=== PATIENT | male | born 1990 | race Caucasian/White ===

== ENCOUNTER 2019-05-24 19:45 | Emergency (ER) | payer SELFPAY ==
[2019-05-24 19:49] VITALS: BP 123/75; PULSE 92; RESP 16; TEMP 36.1; O2SAT 95; BMI 35.5
--- NOTE | 2019-05-24 19:54 | US_ITS ---
WS: [id number] ULTRASOUND RENAL TECHNIQUE: Ultrasound examination of both kidneys. CLINICAL INFORMATION: FLANK PAIN COMPARISON: None. FINDINGS: RIGHT: Right kidney is normal in size and appearance. Echogenicity: Normal Hydronephrosis: None. Perinephric fluid: None. Right kidney measures: 11.1 cm x 6.0 cm x 4.0 cm. LEFT: Left kidney is normal in size and appearance. Echogenicity: Normal. Hydronephrosis: None. Perinephric fluid: None. Left kidney measures: 9.5 cm x 6.2 cm x 4.9 cm. Normal visualized aorta. Normal bladder. US/US renal BI with bladder IMPRESSION: Normal renal ultrasound.
--- NOTE | 2019-05-24 19:55 | W.ED.BACK ---
HPI - Back Pain/Injury General: Chief Complaint: Back Pain/Injury Stated Complaint: back pain Time Seen by Provider: 05/24/19 19:52 History of Present Illness: HPI Narrative: Kirit is a 28-year-old male who comes in complaining of left flank pain. He states the pain is similar to kidney stones he has had in the past. He has had dark urine but does not believe he is had any blood in his urine. He denies any fever or vomiting. Patient states his pain is much worse but got abruptly better just prior to arrival. Associated symptoms: Deny abdominal pain, chills, difficulty walking, dysuria, fatigue, fever(s), hematuria, nausea, syncope, urinary urgency or vomiting Review of Systems General: Reports: other (negative unless marked) Const: Denies: fever, chills, body aches, fatigue, malaise or diaphoresis Eyes: Denies: change in vision or blurry vision ENMT: Denies: throat pain, painful swallowing, hoarseness, ear pain, ear discharge, Change in hearing or nasal discharge Card: Denies: chest pain, palpitations, irregular heart rhythm, syncope, pre-syncope, shortness of breath on exertion or shortness of breath when lying down Resp: Denies: shortness of breath, productive cough, non-productive cough, wheezing, coughing up blood or chest congestion GI: Denies: abdominal pain, nausea, vomiting, vomiting blood, coffee grounds in vomit, diarrhea, constipation, cramping, blood in stool or black tarry stool : Reports: flank pain; Denies: difficulty urinating, painful urination, urinary frequency, urinary urgency, decreased urine ouput, urinary incontinence or blood in urine Musc: Denies: neck pain, back pain, extremity pain, extremity swelling, joint pain, joint swelling, joint warmth or joint stiffness Skin/Breast: Denies: rash, skin tenderness or yellow skin Neuro: Denies: headache, numbness in extremities, weakness in extremities, changes in sensation, lack of coordination, difficulty walking, dizziness, vertigo or confusion Endo: Denies: excessive thirst, tired all the time, cold intolerance, excessive sweating, flushing or hot flashes Je/Lymph: Denies: easy bruising, easy bleeding, petechiae or enlarged lymph nodes All/Imm: Denies: hives, throat swelling, tongue swelling, facial swelling or acute wheezing [facility] ED PFSH: Medical History (Updated 05/24/19 @ 22:40 by Karen Cho) Kidney stones Social History Smoking and tobacco status: current every day smoker Physical Exam Const: COMMON NORMALS: no apparent distress, oriented x3, no limitations, healthy appearing and well nourished EXAM LIMITATIONS: no altered mental status GENERAL APPEARANCE: cooperative, well kempt and well developed ORIENTATION/CONSCIOUSNESS: Yes awake HENMT: COMMON NORMALS: normocephalic, head/scalp atraumatic, hearing grossly normal bilaterally, external ears normal, EAC's normal, external nose normal and moist oral mucous membranes HEAD & SCALP: normal to inspection, normocephalic and atraumatic FACE & SINUS: normal facial exam and face symmetric NOSE: external nose normal and nares normal EXTERNAL EAR: Yes external ears normal EXTERNAL AUDITORY CANAL: EAC's normal MOUTH: oral and palatal mucosa normal and tongue normal Eye: COMMON NORMALS: PERRL, EOMs intact bilaterally, conjunctivae normal and no scleral icterus GENERAL EYE: normal appearance of both eyes and normal light reflex CONJUNCTIVA: Yes conjunctivae normal SCLERA: sclerae normal CORNEA: Yes corneas normal PUPIL: Yes PERRL DIRECT OPHTHALMOSCOPY: Yes normal light reflex Neck/C-Spine: COMMON NORMALS: full ROM, no lymphadenopathy, supple, no meningeal signs and no JVD GENERAL: Yes normal visual inspection and Yes trachea midline CERVICAL SPINE: Yes cervical ROM normal Chest: COMMONS NORMALS: inspection of chest normal and palpation of chest normal Resp: COMMON NORMALS: normal respiratory effort, no retractions, no use of accessory muscles and clear to auscultation bilaterally EFFORT & INSPECTION: Yes able to speak in complete sentences AUSCULTATION: clear to auscultation bilaterally Cardio: COMMON NORMALS: no JVD, regular rate, regular rhythm, S1 normal heart sound, S2 normal heart sound, no gallops, no clicks, no murmurs and no rub JUGULAR VENOUS DISTENTION: no JVD RATE: regular rate RHYTHM: regular rhythm HEART SOUNDS: S1 normal and S2 normal GI: COMMON NORMALS: soft to palpation, non-tender, no hepatosplenomegaly and no masses INSPECTION: Yes normal to inspection PALPATION: Yes soft and Yes no hepatosplenomegaly : COMMON NORMALS: Yes no CVA tenderness BLADDER/KIDNEY EXAM: Yes no CVA tenderness Back/Pelvis: COMMON NORMALS: no CVA tenderness, thoracic and lumbar spine normal to inspection, no thoracic nor lumbar tenderness and thoraco-lumbar ROM normal Extremity: COMMON NORMALS: normal to inspection, full ROM, normal capillary refill, no joint enlargement, no clubbing, cyanosis or edema and no calf tenderness Neuro: COMMON NORMALS: oriented x3, CN's II-XII intact bilaterally, moves all extremities, no focal motor deficits and no sensory deficits noted MENINGEAL SIGNS: Yes no meningeal signs Psych: COMMON NORMALS: mental status grossly normal, thought process normal, cooperative, affect normal, speech normal and activity/motor behavior normal APPEARANCE: Yes well kempt SPEECH: Yes normal speech THOUGHT PROCESS: normal thought process Skin: COMMON NORMALS: no rashes or lesions noted, skin turgor normal, no jaundice, no petechiae and no mottling GENERAL SKIN EXAM: no rashes or lesions noted and turgor normal Course Vital Signs: Vital signs: Vital Signs Temperature 96.9 F L 05/24/19 19:49 Pulse Rate 82 05/24/19 22:54 Respiratory Rate 17 05/24/19 22:54 Blood Pressure 141/68 05/24/19 22:54 Pulse Oximetry 96 05/24/19 22:54 MDM - Back Pain/Injury MDM Narrative: Medical decision making narrative: Patient agreed to go ahead with CT scan as he had questionable infection. CT reveals likely passed stone in the bladder. I did review the case with Dr. Arevalo agrees to see the patient in follow-up. Patient the patient on prophylactic antibiotics at this time he does not have fever, he has no further flank pain and no sign of sepsis. Patient will go home and follow-up with Dr. Barton Lab Data: Attestation: I reviewed the patient's lab results. Labs: Lab Results 05/24/19 05/24/19 05/24/19 Range/Units 20:10 20:10 20:35 WBC 13.3 H (4.0-10.0) 10^3/ uL RBC 5.50 H (4.1-5.3) 10^6/u L Hgb 17.4 H (11.7-16.6) g/dL Hct 49.9 (42.0-52.0) % MCV 90.7 (80-94) fL MCH 31.6 (28.0-34.0) pg MCHC 34.9 (30.0-36.0) g/dL RDW 12.2 (12.1-15.1) % Plt Count 226 (130-400) 10^3/c mm MPV 11.2 H (7.4-10.4) fL Neut % (Auto) 75.6 % Lymph % (Auto) 17.5 % [place] % (Auto) 5.8 % Eos % (Auto) 0.4 % Baso % (Auto) 0.4 % Neut # (Auto) 10.1 H (1.8-7.7) 10^3/u L Lymph # (Auto) 2.3 (0.8-4.8) 10^3/u L [place] # (Auto) 0.8 (0.2-0.9) 10^3/u L Eos # (Auto) 0.1 (0.0-0.8) 10^3/u L Baso # (Auto) 0.1 (0.0-0.1) 10^3/u L Nucleated RBC % (a uto) 0 % Nucleated RBCs # 0.0 /100WBC Sodium 140 (136-145) mmol/L Potassium 3.6 (3.5-5.1) mmol/L Chloride 102 (98-107) mmol/L Carbon Dioxide 23 (22-29) mmol/L Anion Gap 18.6 (5-19) BUN 12 (6-20) mg/dL Creatinine 1.0 (0.7-1.2) mg/dL GFR Calculation 89.6 L (90-130) mL/min Glucose 125 H (65-115) mg/dL Calculated Osmolal ity 288 (285-295) mOsm/k g Calcium 9.9 (8.5-10.5) mg/dL Total Bilirubin 0.6 (0.15-1.2) mg/dL AST 29 (0-40) U/L ALT 51 H (0-41) U/L Alkaline Phosphata se 83 (40-130) IU/L Total Protein 7.5 (6.6-8.7) g/dL Albumin 4.7 (3.5-5.2) g/dL Globulin 2.8 (1.3-4.6) g/dL Urine Color Yellow (Yellow) Urine Appearance Clear (CLEAR) Urine pH 5 (5-7) Ur Specific Gravit y 1.020 (1.005-1.030) Urine Protein 1+ H (Negative) Urine Glucose (UA) Norm (Normal) Urine Ketones 2+ H (Negative) Urine Blood 3+ H (Negative) Urine Nitrate Negative (Negative) Urine Bilirubin Neg (NEGATIVE) Urine Urobilinogen 1 H (Negative) mg/dL Ur Leukocyte Pat ase Trace H (Negative) Urine RBC 15-25 H (0-2) /hpf Urine WBC 0-4 H (0-5) /hpf Ur Squamous Epith Cells None (0-5) Urine Bacteria 1+ H (NONE) Urine Mucus 2+ Imaging Data^: US: Radiologist's impression: Ultrasound bilateral renal with bladder, technologist interpretation -no acute findings. Please see formal report. CT Abd/Pel: Radiologist's impression: [place] [address] CT Scan Report Signed Patient: Kirit Arredondo Unit #: [id number] : 1990 Age/Sex: 28 / M ADM Date: 05/24/19 Loc: ER Room/Bed: Attending Dr: Ordering Provider/Ordering MD: Karen Cho DO Date of Service: 05/24/19 Procedure(s): CT kidney stone 33846 Accession Number(s): [id number] Report Number: [id number] PROCEDURE INFORMATION: Exam: CT Abdomen And Pelvis Without Contrast Exam date and time: 05/24/2019 9:49 PM Age: 28 years old Clinical indication: Abdominal pain; Patient HX: Left flank/groin pain starting today; Additional info: Flank/abdominal pain TECHNIQUE: Imaging protocol: Computed tomography of the abdomen and pelvis without contrast. Total DLP: 1433.44 mGy-cm Radiation optimization: All CT scans at this facility use at least one of these dose optimization techniques: automated exposure control; mA and/or kV adjustment per patient size (includes targeted exams where dose is matched to clinical indication); or iterative reconstruction. COMPARISON: US renal BI with bladder 05/24/2019 9:18 PM FINDINGS: Lungs: The lung bases are clear. Liver: The liver is severely fatty but not significantly enlarged. There is incidental focal fatty sparing near the gallbladder. Gallbladder and bile ducts: See Liver finding. Pancreas: Normal. No ductal dilation. Spleen: Normal. No splenomegaly. Adrenals: Normal. No mass. Kidneys and ureters: There is no obstructive uropathy. However within the left portion of the urinary bladder there is a 1 x 2 mm calculus which could be in the very distal ampullary portion of the ureter or free within the urinary bladder. Several 1-2 mm nonobstructing right intrarenal calculi. Stomach and bowel: Unremarkable. No obstruction. No mucosal thickening. Appendix: The appendix is normal. Intraperitoneal space: Unremarkable. No free air. No significant fluid collection. Vasculature: Unremarkable. No abdominal aortic aneurysm. Lymph nodes: Unremarkable. No enlarged lymph nodes. Bladder: See Kidneys and ureters finding. Reproductive: Unremarkable as visualized. Bones/joints: Unremarkable. No acute fracture. Soft tissues: 2 cm incidental umbilical hernia consisting of noninflamed fatty tissue. CT/CT kidney stone [id number] IMPRESSION: 1. Small calculus in the urinary bladder, probably in the ampullary portion of the ureter but could be free in the bladder. No hydronephrosis. 2. Additional nonobstructing right intrarenal stones. 3. Hepatic steatosis Radiation Dose CTDIVOL = (mGy): DLP = 1433.44 (mGy-cm) Dictated By: Mauri Torres MD Signed By: Mauri Torres MD Signed Date/Time: 05/24/192225 DD/ 23 Discharge Plan Discharge Patient Disposition: Home, Self-Care Clinical Impression: Kidney stones, Acute UTI Condition: Stable Prescriptions: New Cipro 500 mg tablet 500 mg PO BID Qty: 20 RF: 0 Discharge Orders: Discharge Order (Routine); Ordered 05/24/19 Ordered By: Karen Cho Referrals: Yousif Arevalo MD [Physician] - 1-3 days Discharge Diet: Advance as tolerated Discharge Activity: Increase activity as tolerated Patient Instructions: Urinary Tract Infection in Men (ED), Renal Colic (ED) Activity Restrictions/Additional Instructions: Please return to the ER immediately for any of the signs or symptoms listed on your discharge instruction sheets, worsening/changing of your symptoms, you are not getting better as quickly as expected, or for ANY other cause or concerns. Return to the ER for fever, return of your flank pain, vomiting, or for any other cause for concern. 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
[2019-05-24] MEDS: HYDROcodone-acetaminophen 5-325 mg Tablet 1 TAB PO (20:08)
[2019-05-24 20:25] LABS: Basophils # 0.1 10^3/uL (0.0-0.1); Basophils % 0.4 %; Eosinophils # 0.1 10^3/uL (0.0-0.8); Eosinophils % 0.4 %; Hematocrit 49.9 % (42.0-52.0); Hemoglobin 17.4 g/dL (11.7-16.6); Lymphocytes # 2.3 10^3/uL (0.8-4.8); Lymphocytes % 17.5 %; Mean Corpuscular HGB Conc 34.9 g/dL (30.0-36.0); Mean Corpuscular Hemoglobin 31.6 pg (28.0-34.0); Mean Corpuscular Volume 90.7 fL (80-94); Mean Platelet Volume 11.2 fL (7.4-10.4); Monocytes # 0.8 10^3/uL (0.2-0.9); Monocytes % 5.8 %; Neutrophils # 10.1 10^3/uL (1.8-7.7); Neutrophils % 75.6 %; Nucleated Red Blood Cells % 0 %; Platelet Count 226 10^3/cmm (130-400); Red Cell Distribution Width 12.2 % (12.1-15.1); White Blood Count 13.3 10^3/uL (4.0-10.0)
[2019-05-24 20:48] LABS: Alanine Aminotransferase 51 U/L (0-41); Albumin Level 4.7 g/dL (3.5-5.2); Alkaline Phosphatase 83 IU/L (40-130); Anion Gap 18.6 (5-19); Aspartate Amino Transferase 29 U/L (0-40); Blood Urea Nitrogen 12 mg/dL (6-20); Calcium 9.9 mg/dL (8.5-10.5); Carbon Dioxide 23 mmol/L (22-29); Chloride 102 mmol/L (98-107); Globulin 2.8 g/dL (1.3-4.6); Glomerular Filtration Rate 89.6 mL/min (90-130); Glucose 125 mg/dL (65-115); Osmolality Calculated 288 mOsm/kg (285-295); Potassium 3.6 mmol/L (3.5-5.1); Sodium 140 mmol/L (136-145); Total Bilirubin 0.6 mg/dL (0.15-1.2); Total Protein 7.5 g/dL (6.6-8.7)
[2019-05-24 21:35] LABS: Bilirubin Urine Neg (NEGATIVE); Blood Urine 3+ (Negative); Glucose Urine UA Norm (Normal); Ketones Urine 2+ (Negative); Nitrate Urine Negative (Negative); Protein Urine 1+ (Negative); Urine Appearance Clear (CLEAR); Urine Color Yellow (Yellow); pH Urine 5 (5-7)
[2019-05-24 21:36] LABS: Leukocyte Esterase Urine Trace (Negative); Urobilinogen Urine 1 mg/dL (Negative)
--- NOTE | 2019-05-24 21:45 | CTR_ITS ---
PROCEDURE INFORMATION: Exam: CT Abdomen And Pelvis Without Contrast Exam date and time: 05/24/2019 9:49 PM Age: 28 years old Clinical indication: Abdominal pain; Patient HX: Left flank/groin pain starting today; Additional info: Flank/abdominal pain TECHNIQUE: Imaging protocol: Computed tomography of the abdomen and pelvis without contrast. Total DLP: 1433.44 mGy-cm Radiation optimization: All CT scans at this facility use at least one of these dose optimization techniques: automated exposure control; mA and/or kV adjustment per patient size (includes targeted exams where dose is matched to clinical indication); or iterative reconstruction. COMPARISON: US renal BI with bladder 05/24/2019 9:18 PM FINDINGS: Lungs: The lung bases are clear. Liver: The liver is severely fatty but not significantly enlarged. There is incidental focal fatty sparing near the gallbladder. Gallbladder and bile ducts: See Liver finding. Pancreas: Normal. No ductal dilation. Spleen: Normal. No splenomegaly. Adrenals: Normal. No mass. Kidneys and ureters: There is no obstructive uropathy. However within the left portion of the urinary bladder there is a 1 x 2 mm calculus which could be in the very distal ampullary portion of the ureter or free within the urinary bladder. Several 1-2 mm nonobstructing right intrarenal calculi. Stomach and bowel: Unremarkable. No obstruction. No mucosal thickening. Appendix: The appendix is normal. Intraperitoneal space: Unremarkable. No free air. No significant fluid collection. Vasculature: Unremarkable. No abdominal aortic aneurysm. Lymph nodes: Unremarkable. No enlarged lymph nodes. Bladder: See Kidneys and ureters finding. Reproductive: Unremarkable as visualized. Bones/joints: Unremarkable. No acute fracture. Soft tissues: 2 cm incidental umbilical hernia consisting of noninflamed fatty tissue. CT/CT kidney stone [id number] IMPRESSION: 1. Small calculus in the urinary bladder, probably in the ampullary portion of the ureter but could be free in the bladder. No hydronephrosis. 2. Additional nonobstructing right intrarenal stones. 3. Hepatic steatosis Radiation Dose CTDIVOL = (mGy): DLP = 1433.44 (mGy-cm)
[2019-05-24 21:53] LABS: Add Urine Culture? Yes; Bacteria Urine 1+; Mucus Urine 2+; RBC Urine 15-25 /hpf (0-2); WBC Urine 0-4 /hpf (0-5)
[2019-05-24] MEDS: lidocaine 1% INJ 20 mL 2.1 ML IM (22:47)
[2019-05-24] MEDS: ciprofloxacin 500 mg Tablet PO (22:47)
[2019-05-24] MEDS: cefTRIAXone 1,000 mg SDV 1000 MG IM (22:47)
[2019-05-24 22:54] VITALS: BP 141/68; PULSE 82; RESP 17; O2SAT 96
== END 2019-05-24 23:04 | disposition home or self-care (01) ==
PROVIDERS: Emergency Provider Emergency Medicine
DX: N20.0 Calculus of kidney (principal); N39.0 Urinary tract infection, site not specified; F17.200 Nicotine dependence, unspecified, uncomplicated
CPT/HCPCS: 12345; 36415; 74176; 76770; 76857; 80053; 81001; 85025; 87086; 96372; 99281; 99283; J0696; J2001

== ENCOUNTER 2021-09-09 03:52 | Emergency (ER) | payer SELFPAY ==
[2021-09-09] VITALS (8 sets, daily range): BP systolic 122–144; BP diastolic 69–102; PULSE 59–96; RESP 18–22; TEMP 37.1; O2SAT 94–99; BMI 27.8
--- NOTE | 2021-09-09 04:00 | XRR_ITS ---
PROCEDURE INFORMATION: Exam: XR Abdomen Exam date and time: 09/09/2021 4:40 AM Age: 30 years old Clinical indication: Abdominal pain; Patient HX: RT sided back and groin pain x 2 days, HX of kidney stones; Additional info: Kidney stone TECHNIQUE: Imaging protocol: Radiologic exam of the abdomen. Views: Frontal supine view of the abdomen. 1 View. Other contrast: none; COMPARISON: CT kidney stone [id number] 05/24/2019 10:11 PM FINDINGS: Gastrointestinal tract: There is a non-obstructive bowel gas pattern. There is no abnormal dilatation of bowel loops. There is no pneumatosis or mass effect. There is no organomegaly. Intraperitoneal space: No definite free air on the supine view exam. Bones/joints: There are no acute osseous abnormalities noted. Soft tissues: No radiopaque foreign body or abnormal opacity. XR/XR KUB portable [id number] IMPRESSION: Unremarkable one-view radiographic evaluation of the abdomen.
--- NOTE | 2021-09-09 04:01 | ED_ITS ---
HPI - Abdominal Pain General: Chief Complaint: Back Pain/Injury Stated Complaint: ABD Pain Time Seen by Provider: 09/09/21 03:53 Source: patient Mode of arrival: ambulatory Limitations: no limitations History of Present Illness: 30-year-old male states he has been having right- sided flank pain since 3 AM. Patient states that some intermittent pain last 2 days but sudden onset of worsening pain at 3 AM. States pain is sharp in nature radiates to his groin has had nausea as well. States pain is currently an 8 out of 10 denies any worsening improving factors. He states he has had multiple kidney stones in the past and this feels the same. Associated Symptoms: Reports nausea; Denies chills and fever(s) Review of Systems Const: Denies: fever(s), chills, body aches or change in appetite Eyes: Denies: blurry vision or eye discomfort ENMT: Denies: throat pain or dental pain Card: Denies: chest pain Resp: Denies: dyspnea GI: Reports: nausea : Reports: flank pain Musc: Denies: neck pain or back pain Skin/Breast: Denies: rash Neuro: Denies: headache(s) Psych: Denies: depression Je/Lymph: Denies: easy bruising All/Imm: Denies: urticaria PFSH ED PFSH: Medical History Kidney stones Social History Smoking and tobacco status: current every day smoker Physical Exam Const: COMMON NORMALS: no acute distress, patient oriented x3 and healthy ap pearing HENMT: COMMON NORMALS: normocephalic and atraumatic HEAD & SCALP: normocephalic and atraumatic Eye: COMMON NORMALS: Equal, round and reactive pupils present and EOMs intact bilaterally PUPIL: Yes Equal, round and reactive pupils present Neck/C-Spine: COMMON NORMALS: full ROM and supple Chest: COMMONS NORMALS: normal inspection of the chest and normal palpation of entire chest wall Resp: COMMON NORMALS: normal respiratory effort, No retractions, No use of accessory muscles and clear to auscultation bilaterally AUSCULTATION: clear to auscultation bilaterally Cardio: COMMON NORMALS: regular rate, regular rhythm and No murmurs present (Cardio) RATE: regular rate RHYTHM: regular rhythm GI: COMMON NORMALS: Normal to inspection, nondistended, normoactive bowel sounds present, Soft to palpation, non-tender and no masses PALPATION: Yes Soft to palpation Extremity: COMMON NORMALS: normal to inspection and full ROM Neuro: COMMON NORMALS: patient oriented x3, moves all extremities and no focal motor deficits Psych: COMMON NORMALS: mental status grossly normal, Normal thought process pr esent and cooperative THOUGHT PROCESS: Normal thought process present Skin: COMMON NORMALS: no rashes or lesions noted and no wounds GENERAL SKIN EXAM: no rashes or lesions noted Course Vital Signs: Vital signs: Vital Signs Temperature 98.8 F 09/09/21 04:01 Pulse Rate 96 09/09/21 05:35 Respiratory Rate 18 09/09/21 05:35 Blood Pressure 125/81 09/09/21 05:35 Pulse Oximetry 95 09/09/21 05:35 MDM - Abdominal Pain Medical Decision Making Patient presents with a right-sided kidney stone likely causing his pain. His pain is improved here we will prescribe him hydrocodone and Zofran for home he is stable for discharge he is to follow-up with urology and return if worsening he understands agrees to plan. Lab Data : 09/09/21 04:53 09/09/21 04:53 Labs/Radiology: Radiology Impressions KUB X-Ray 09/09/21 04:00 IMPRESSION: Unremarkable one-view radiographic evaluation of the abdomen. Abdomen/Pelvis CT 09/09/21 05:01 IMPRESSION: 1. Unchanged right kidney mid zone and lower pole 1 x 1 mm calculi. [id number] right hydronephrosis with a right proximal ureteral 1 x 1 x 1 mm calculus (series 4, image 55 and series 6, image 34)-at the L4 level. 2. Bladder not well distended with relative mild bladder wall prominence, as noted above. If there is clinical concern for cystitis, recommend correlation with urinalysis findings. 3. Unchanged severe fatty infiltration of the liver with some small regions of focal fatty sparing. No definite mass seen. Laboratory Results WBC 13.8 10^3/uL (4.0-10.0) H 09/09/21 04:53 RBC 5.17 10^6/uL (4.1-5.3) 09/09/21 04:53 Hgb 17.0 g/dL (11.7-16.6) H 09/09/21 04:53 Hct 47.5 % (42.0-52.0) 09/09/21 04:53 MCV 91.9 fl (80-94) 09/09/21 04:53 MCH 32.9 pg (28.0-34.0) 09/09/21 04:53 MCHC 35.8 g/dL (30.0-36.0) 09/09/21 04:53 RDW 12.4 % (12.1-15.1) 09/09/21 04:53 Plt Count 194 10^3/cmm (130-400) 09/09/21 04:53 MPV 11.1 fL (7.4-10.4) H 09/09/21 04:53 Neut % (Auto) 75.1 % 09/09/21 04:53 Lymph % (Auto) 16.8 % 09/09/21 04:53 [facility] % (Auto) 6.2 % 09/09/21 04:53 Eos % (Auto) 0.7 % 09/09/21 04:53 Baso % (Auto) 0.7 % 09/09/21 04:53 Neut # (Auto) 10.34 10^3/uL (1.8-7.7) H 09/09/21 04:53 Lymph # (Auto) 2.3 10^3/uL (0.8-4.8) 09/09/21 04:53 [facility] # (Auto) 0.9 10^3/uL (0.2-0.9) 09/09/21 04:53 Eos # (Auto) 0.1 10^3/uL (0.0-0.8) 09/09/21 04:53 Baso # (Auto) 0.1 10^3/uL (0.0-0.1) 09/09/21 04:53 Nucleated RBC % (auto) 0 % 09/09/21 04:53 Nucleated RBCs # 0.0 /100WBC 09/09/21 04:53 Sodium 139 mmol/L (136-145) 09/09/21 04:53 Potassium 3.9 mmol/L (3.5-5.1) 09/09/21 04:53 Chloride 105 mmol/L (98-107) 09/09/21 04:53 Carbon Dioxide 24 mmol/L (22-29) 09/09/21 04:53 Anion Gap 13.9 (5-19) 09/09/21 04:53 BUN 10 mg/dL (6-20) 09/09/21 04:53 Creatinine 0.9 mg/dL (0.7-1.2) 09/09/21 04:53 GFR Calculation 99.8 mL/min (90-130) 09/09/21 04:53 Glucose 133 mg/dL (65-115) H 09/09/21 04:53 Calculated Osmolality 289 mOsm/kg (285-295) 09/09/21 04:53 Calcium 9.0 mg/dL (8.5-10.5) 09/09/21 04:53 Total Bilirubin 0.3 mg/dL (0.15-1.2) 09/09/21 04:53 AST 38 U/L (0-40) 09/09/21 04:53 ALT 82 U/L (0-41) H 09/09/21 04:53 Alkaline Phosphatase 63 IU/L (40-130) 09/09/21 04:53 Total Protein 6.2 g/dL (6.6-8.7) L 09/09/21 04:53 Albumin 4.1 g/dL (3.5-5.2) 09/09/21 04:53 Globulin 2.1 g/dL (1.3-4.6) 09/09/21 04:53 Lipase 46 U/L (13-60) 09/09/21 04:53 Urine Color Yellow (Yellow) 09/09/21 04:58 Urine Appearance Hazy (CLEAR) A 09/09/21 04:58 Urine pH 7 (5-7) 09/09/21 04:58 Ur Specific [place] 1.015 (1.005-1.030) 09/09/21 04:58 Urine Protein Trace (Negative) 09/09/21 04:58 Urine Glucose (UA) Norm (Normal) 09/09/21 04:58 Urine Ketones Negative (Negative) 09/09/21 04:58 Urine Blood 3+ (Negative) H 09/09/21 04:58 Urine Nitrate Negative (Negative) 09/09/21 04:58 Urine Bilirubin Neg (Negative) 09/09/21 04:58 Urine Urobilinogen Neg mg/dL (Negative) 09/09/21 04:58 Ur Leukocyte Esterase Negative (Negative) 09/09/21 04:58 Urine RBC 50-80 /hpf (0-2) H 09/09/21 04:58 Urine WBC 0-4 /hpf (0-5) H 09/09/21 04:58 Ur Squamous Epith Cells 0-4 /hpf (0-5) H 09/09/21 04:58 Amorphous Sediment 1+ /hpf 09/09/21 04:58 Urine Bacteria Trace /hpf (NONE) 09/09/21 04:58 Discharge Plan Discharge Patient Disposition: Home Clinical Impression: Kidney stones Condition: Stable Prescriptions: New hydrocodone-acetaminophen 5-325 mg tablet 1 tab PO Q6H PRN (Reason: pain) Qty: 14 0RF ondansetron 4 mg tablet,disintegrating 4 mg PO Q6H PRN (Reason: nausea and vomiting) Qty: 14 0RF No Action Cipro 500 mg tablet 500 mg PO BID Qty: 20 0RF Discharge Orders: Discharge ED (Routine); Ordered 09/09/21 Ordered By: Amalia Carrion Referrals: Yousif Arevalo MD [Physician] - 1-3 days Discharge Diet: Advance as tolerated Discharge Activity: Resume usual activity Patient Instructions: Kidney Stones (ED), Opioid Safety Coding Level of Care Code 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
[2021-09-09] MEDS: ondansetron 2 mg/ML SDV 2 mL 4 MG IVP ×2 (04:27→05:14)
[2021-09-09] MEDS: HYDROmorphone 1 mg/mL INJ 1 mL IVP (04:28)
[2021-09-09] MEDS: sodium chloride 0.9% 1,000 ML 999 ML IV (04:30)
[2021-09-09 05:00] LABS: Basophils # 0.1 10^3/uL (0.0-0.1); Basophils % 0.7 %; Eosinophils # 0.1 10^3/uL (0.0-0.8); Eosinophils % 0.7 %; Hematocrit 47.5 % (42.0-52.0); Lymphocytes # 2.3 10^3/uL (0.8-4.8); Lymphocytes % 16.8 %; Mean Corpuscular HGB Conc 35.8 g/dL (30.0-36.0); Mean Corpuscular Hemoglobin 32.9 pg (28.0-34.0); Mean Corpuscular Volume 91.9 fl (80-94); Mean Platelet Volume 11.1 fL (7.4-10.4); Monocytes # 0.9 10^3/uL (0.2-0.9); Monocytes % 6.2 %; Neutrophils # 10.34 10^3/uL (1.8-7.7); Neutrophils % 75.1 %; Nucleated Red Blood Cells % 0 %; Platelet Count 194 10^3/cmm (130-400); Red Blood Count 5.17 10^6/uL (4.1-5.3); Red Cell Distribution Width 12.4 % (12.1-15.1); White Blood Count 13.8 10^3/uL (4.0-10.0)
--- NOTE | 2021-09-09 05:01 | CTR_ITS ---
PROCEDURE INFORMATION: Exam: CT Abdomen And Pelvis Without Contrast Exam date and time: 09/09/2021 5:22 AM Age: 30 years old Clinical indication: Abdominal pain; Prior surgery; Surgery date: 6+ months; Surgery type: Stone removal; Patient HX: Right flank pain x 2 days with nausea and vomiting; Additional info: R flank pain TECHNIQUE: Imaging protocol: Computed tomography of the abdomen and pelvis without contrast. Radiation optimization: All CT scans at this facility use at least one of these dose optimization techniques: automated exposure control; mA and/or kV adjustment per patient size (includes targeted exams where dose is matched to clinical indication); or iterative reconstruction. COMPARISON: CT kidney stone [id number] 05/24/2019 10:11 PM RADIATION DOSE METRICS: Total DLP (mGy-cm): 1353.53 FINDINGS: Liver: There is unchanged severe fatty infiltration of the liver with some small regions of focal fatty sparing. No definite mass seen. Gallbladder and bile ducts: No calcified gallstones. No biliary ductal dilatation. Pancreas: Appears unremarkable on the non-contrast CT. No ductal dilation. Spleen: Appears unremarkable on the non-contrast CT. No splenomegaly. Adrenal glands: Normal. No mass. Kidneys and ureters: There are no contour deforming renal masses on the noncontrast CT. Unchanged right kidney mid zone and lower pole 1 x 1 mm calculi are seen. There is [id number] right hydronephrosis with a right proximal ureteral 1 x 1 x 1 mm calculus (series 4, image 55 and series 6, image 34)-at the L4 level. No left hydronephrosis, ureterectasis or ureteral calculi. Stomach and bowel: The noncontrast opacified stomach appears unremarkable. The noncontrast opacified loops of small bowel in the abdomen and pelvis appear unremarkable. The noncontrast opacified loops of colon in the abdomen and pelvis appear unremarkable. The lack of orally administered contrast material limits bowel assessment. Appendix: No evidence of appendicitis. Intraperitoneal space: No abdominal ascites. No free air. Some unchanged phleboliths are seen in the pelvis. Unchanged small umbilical hernia is seen, containing peritoneal fat. Vasculature: No abdominal aortic aneurysm. Lymph nodes: No enlarged lymph nodes. Urinary bladder: The bladder is not distended. Mild bladder wall thickening is seen. Further assessment may be performed with urinalysis findings, if there is clinical concern for cystitis. Reproductive: Unremarkable as visualized. Bones/joints: No acute osseous abnormality seen. Soft tissues: Unremarkable. CT/CT abdomen pelvis wo con [id number] IMPRESSION: 1. Unchanged right kidney mid zone and lower pole 1 x 1 mm calculi. [id number] right hydronephrosis with a right proximal ureteral 1 x 1 x 1 mm calculus (series 4, image 55 and series 6, image 34)-at the L4 level. 2. Bladder not well distended with relative mild bladder wall prominence, as noted above. If there is clinical concern for cystitis, recommend correlation with urinalysis findings. 3. Unchanged severe fatty infiltration of the liver with some small regions of focal fatty sparing. No definite mass seen.
[2021-09-09] MEDS: morphine 4 mg/mL SDV 1 mL IVP (05:12)
[2021-09-09 05:17] LABS: Add Urine Microscopic? YES; Bilirubin Urine Neg (Negative); Blood Urine 3+ (Negative); Glucose Urine UA Norm (Normal); Ketones Urine Negative (Negative); Leukocyte Esterase Urine Negative (Negative); Nitrate Urine Negative (Negative); Protein Urine Trace (Negative); Specific Gravity, Urine 1.015 (1.005-1.030); Urine Appearance Hazy (CLEAR); Urine Color Yellow (Yellow); Urobilinogen Urine Neg (Negative); pH Urine 7 (5-7)
[2021-09-09 05:18] LABS: Add Urine Culture? Yes; Amorphous Sediment Urine 1+ /hpf; Bacteria Urine TRACE /hpf; RBC Urine 50-80 /hpf (0-2); Squamous Epithelial Cell Urine 0-4 /hpf (0-5); WBC Urine 0-4 /hpf (0-5)
[2021-09-09 05:21] LABS: Alanine Aminotransferase 82 U/L (0-41); Albumin Level 4.1 g/dL (3.5-5.2); Alkaline Phosphatase 63 IU/L (40-130); Anion Gap 13.9 (5-19); Aspartate Amino Transferase 38 U/L (0-40); Blood Urea Nitrogen 10 mg/dL (6-20); Carbon Dioxide 24 mmol/L (22-29); Chloride 105 mmol/L (98-107); Globulin 2.1 g/dL (1.3-4.6); Glomerular Filtration Rate 99.8 mL/min (90-130); Glucose 133 mg/dL (65-115); Lipase 46 U/L (13-60); Osmolality Calculated 289 mOsm/kg (285-295); Potassium 3.9 mmol/L (3.5-5.1); Sodium 139 mmol/L (136-145); Total Bilirubin 0.3 mg/dL (0.15-1.2); Total Protein 6.2 g/dL (6.6-8.7)
[2021-09-09] MEDS: ketorolac 30 mg/mL INJ 15 MG IVP (05:36)
--- NOTE | 2021-09-09 07:36 | DCPLANNER ---
Addendum entered by Yina Araujo 09/26/21 12:26: fountain manager was sent the following message from the urology clinic regarding follow up appointment: Patient declined appt with Dr. Arevalo Original Note: fountain manager had message to schedule a follow up appointment for patient with urology. fountain manager sent patients information to the front office staff at urology. Patients information will be printed and reviewed. Clinic will call patient with appointment information.
== END 2021-09-09 06:12 | disposition home or self-care (01) ==
PROVIDERS: Emergency Provider Emergency Medicine
DX: N20.0 Calculus of kidney (principal); Z87.442 Personal history of urinary calculi; F17.210 Nicotine dependence, cigarettes, uncomplicated
CPT/HCPCS: 74018; 74176; 80053; 81001; 83690; 85025; 87086; 96374; 96375; 96376; 99285; J1170; J1885; J2270; J2405; J7030

== ENCOUNTER 2023-03-03 09:02 | Emergency (ER) | payer SELFPAY ==
[2023-03-03 09:04] VITALS: BP 121/88; PULSE 60; RESP 18; TEMP 36.8; O2SAT 98; BMI 36.2
--- NOTE | 2023-03-03 09:05 | ED_ITS ---
HPI - Abdominal Pain 2 General: Chief Complaint: Urogenital-Male Stated Complaint: Abd pain Time Seen by Provider: 03/03/23 09:05 Source: patient Mode of arrival: EMS History of Present Illness: 32-year-old male with a history of recur rent nephrolithiasis woke this morning with right lower back pain right flank pain difficulty with urination. He has not had any hematuria no fever sweats or chills. Said multiple kidney stones in the past. States this feels similar to what he has had previously. Has been very nauseous and vomited a couple of times. He did get Zofran and Toradol from EMS and route had moderate relief of symptoms. MD elicited complaint: abdominal pain Pertinent past history: kidney stones Onset (ago): hour(s) Location: R flank and Other (Right low back) Quality: sharp Exacerbating factors: nothing Relieving factors: nothing Associated Symptoms: Denies anorexia, belching, bloating, change in bowel habits, change in stool character, chills, coffee ground emesis, constipation, GI cramping, diarrhea, dyspepsia, dysuria, excessive flatus, fever(s), heartburn, hematochezia, hematuria, hematemesis, fecal incontinence, loose stools, melena, nausea, poor appetite, syncope and vomiting Review of Systems 2 Const: Denies: fever(s) or chills Card: Denies: chest pain or syncope Resp: Denies: dyspnea GI: Denies: abdominal pain, nausea, vomiting, hematemesis, coffee ground emesis, heartburn, diarrhea, constipation, bloating, GI cramping, belching, excessive flatus, fecal incontinence, change in bowel habits, change in stool character, hematochezia or melena : Reports: flank pain; Denies: dysuria, urinary frequency, urinary urgency or hematuria Musc: Denies: neck pain or back pain Skin/Breast: Denies: rash PFSH ED 2 PFSH: Medical History Kidney stones Social History Smoking and tobacco/nicotine status: current every day tobacco/nicotine user Physical Exam 2 Const: COMMON NORMALS: no acute distress GENERAL APPEARANCE: cooperative and comfortable ORIENTATION/CONSCIOUSNESS: Yes awake, Yes oriented to person, Yes oriented to place and Yes oriented to time HENMT: COMMON NORMALS: normocephalic, atraumatic and hearing grossly normal bilaterally HEAD & SCALP: normocephalic and atraumatic Resp: COMMON NORMALS: normal respiratory effort, No retractions, No use of accessory muscles and clear to auscultation bilaterally AUSCULTATION: clear to auscultation bilaterally Cardio: COMMON NORMALS: regular rate, regular rhythm and No murmurs present (Cardio) RATE: regular rate RHYTHM: regular rhythm GI: COMMON NORMALS: Soft to palpation and No hepatosplenomegaly present A USCULTATION: Yes normoactive bowel sounds PALPATION: Yes Soft to palpation, No Tenderness to palpation present (GI), No Guarding due to palpation present (GI) and Yes No hepatosplenomegaly present Extremity: COMMON NORMALS: normal to inspection, capillary refill normal, no clubbing, cyanosis or edema, no calf tenderness and no pedal edema Neuro: SENSORIUM/ORIENTATION: Yes oriented to person, Yes oriented to place and Yes oriented to time Skin: COMMON NORMALS: no rashes or lesions noted GENERAL SKIN EXAM: no rashes or lesions noted Course 2 Vital Signs: Vital signs: Vital Signs Temperature 98.2 F 03/03/23 09:04 Pulse Rate 60 03/03/23 09:04 Respiratory Rate 18 03/03/23 09:50 Blood Pressure 121/88 03/03/23 09:04 Pulse Oximetry 99 03/03/23 09:50 Oxygen Delivery Me thod Room Air 03/03/23 09:04 MDM - Abdominal Pain Medical Decision Making Pain controlled. 2 x 5 mm stone on the right. Interestingly he has had a stone in the same area about a year and a half ago. This 1 is slightly larger. Radiology is uncertain if the stone is the same stone or he may have passed a stone has a narrow area at this portion of the ureter and just happened to present with a similar sized stone in the similar position. In either event at this point pain is well-controlled. Will discharge home hydrocodone antiemetics tamsulosin and referral to urology return to the ER if pain is not well- controlled on oral medications Medical Records I reviewed the patient's medical records. Lab Data I reviewed the patient's lab results. 03/03/23 09:47 03/03/23 09:47 Labs/Radiology: Laboratory Results WBC 14.95 10^3/uL (3.29-11.43) H 03/03/23 09:47 RBC 5.35 10^6/uL (3.85-5.65) 03/03/23 09:47 Hgb 17.30 g/dL (11.27-16.99) H 03/03/23 09:47 Hct 48.4 % (37-53) 03/03/23 09:47 MCV 90.5 fl (82-101) 03/03/23 09:47 MCH 32.3 pg (27-33) 03/03/23 09:47 MCHC 35.7 g/dL (30-55) 03/03/23 09:47 RDW 12.3 % (12.1-15.1) 03/03/23 09:47 Plt Count 211 10^3/cmm (157-399) 03/03/23 09:47 MPV 10.8 fL (7.4-10.4) H 03/03/23 09:47 Neut % (Auto) 77.6 % 03/03/23 09:47 Lymph % (Auto) 15.7 % 03/03/23 09:47 [place] % (Auto) 5.3 % 03/03/23 09:47 Eos % (Auto) 0.6 % 03/03/23 09:47 Baso % (Auto) 0.5 % 03/03/23 09:47 Neut # (Auto) 11.60 10^3/uL (1.8-7.7) H 03/03/23 09:47 Lymph # (Auto) 2.4 10^3/uL (0.8-4.8) 03/03/23 09:47 [place] # (Auto) 0.8 10^3/uL (0.2-0.9) 03/03/23 09:47 Eos # (Auto) 0.1 10^3/uL (0.0-0.8) 03/03/23 09:47 Baso # (Auto) 0.1 10^3/uL (0.0-0.1) 03/03/23 09:47 Nucleated RBC % (auto) 0 % 03/03/23 09:47 Nucleated RBCs # 0.0 /100WBC 03/03/23 09:47 Sodium 139 mmol/L (136-145) 03/03/23 09:47 Potassium 4.2 mmol/L (3.5-5.1) 03/03/23 09:47 Chloride 107 mmol/L (98-107) 03/03/23 09:47 Carbon Dioxide 22 mmol/L (22-29) 03/03/23 09:47 Anion Gap 14.2 (5-19) 03/03/23 09:47 BUN 10 mg/dL (6-20) 03/03/23 09:47 Creatinine 1.0 mg/dL (0.7-1.2) 03/03/23 09:47 GFR Calculation 87.2 mL/min (90-130) L 03/03/23 09:47 Glucose 139 mg/dL (65-115) H 03/03/23 09:47 Calculated Osmolality 289 mOsm/kg (285-295) 03/03/23 09:47 Calcium 9.5 mg/dL (8.5-10.5) 03/03/23 09:47 Total Bilirubin 0.3 mg/dL (0.15-1.2) 03/03/23 09:47 AST 23 U/L (0-40) 03/03/23 09:47 ALT 33 U/L (0-41) 03/03/23 09:47 Alkaline Phosphatase 66 U/L (40-130) 03/03/23 09:47 Total Protein 6.6 g/dL (6.6-8.7) 03/03/23 09:47 Albumin 4.1 g/dL (3.5-5.2) 03/03/23 09:47 Globulin 2.5 g/dL (1.3-4.6) 03/03/23 09:47 Lipase 37 U/L (13-60) 03/03/23 09:47 Urine Color Yellow (Yellow) 03/03/23 10:57 Urine Appearance Hazy (CLEAR) A 03/03/23 10:57 Urine pH 7 (5-7) 03/03/23 10:57 Ur Specific [place] 1.020 (1.005-1.030) 03/03/23 10:57 Urine Protein Trace (Negative) 03/03/23 10:57 Urine Glucose (UA) Norm (Normal) 03/03/23 10:57 Urine Ketones 1+ (Negative) H 03/03/23 10:57 Urine Blood 3+ (Negative) H 03/03/23 10:57 Urine Nitrate Negative (Negative) 03/03/23 10:57 Urine Bilirubin Neg (Negative) 03/03/23 10:57 Urine Urobilinogen Norm mg/dL (Negative) 03/03/23 10:57 Ur Leukocyte Esterase Negative (Negative) 03/03/23 10:57 Urine RBC 40-50 /hpf (0-2) H 03/03/23 10:57 Urine WBC 0-4 /hpf (0-5) H 03/03/23 10:57 Ur Squamous Epith Cells 0-4 /hpf (0-5) H 03/03/23 10:57 Amorphous Sediment 1+ /hpf 03/03/23 10:57 Urine Bacteria None /hpf (NONE) 03/03/23 10:57 Hyaline Casts 0-4 /lpf H 03/03/23 10:57 Urine Mucus 1+ /hpf 03/03/23 10:57 All radiology interpretation(s) finalized by discharge Discharge Plan Discharge Patient Disposition: Home Clinical Impression: Kidney stones Condition: Stable Prescriptions: New hydrocodone-acetaminophen 5-325 mg tablet 1 tab PO Q6H PRN (Reason: pain) Qty: 20 0RF tamsulosin 0.4 mg capsule 0.4 mg PO DAILY Qty: 20 0RF promethazine 25 mg tablet 25 mg PO Q6H PRN (Reason: nausea and vomiting) Qty: 10 0RF No Action ibuprofen 200 mg Tablet 200 - 800 mg PO Q6H PRN (Reason: Pain) Discharge Orders: Discharge ED (Routine); Ordered 03/03/23 Ordered By: Edmond Zepeda Discharge Diet: Usual diet Discharge Activity: Increase activity as tolerated Patient Instructions: Opioid Safety, Pain Management Activity Restrictions/Additional Instructions: Thank you for choosing [facility] for your healthcare needs today. Please realize this is an emergency room and that we are providing you with a medical screening exam and this may not be complete and all inclusive of all the testing and or work up that you may need to determine your ailment or severity of your illness. It is very important that you follow up as instructed or that you return to the Emergency Department should you have concerns or if your condition changes or worsens in any way.. CT showed a right mid ureter ureterolithiasis. Recommend strain urine use pain and nausea medications as needed as well as taking tamsulosin and increase potential for passing the stone spontaneously. Case management make arrangements for you to follow-up with urology. The stone noted on today's CT is in roughly the same position and slightly larger than 1 noted in August 2021 it may be a stone similar in size that cause symptoms at about the same location in the ureter or it may have been the same stone that has been residing in the ureter for an extended period of time. Urology will have to evaluate further. Coding Level of Care Code ED [employer] for Dane Perez
--- NOTE | 2023-03-03 09:17 | CT_ITS ---
WS: [id number] CT ABDOMEN AND PELVIS NONCONTRAST HISTORY: flank pain, right-sided TECHNIQUE: Imaging performed through the abdomen and pelvis. Coronal and sagittal reformats are submi tted. All CT scans at [facility] use at least one of these dose optimization techniques: auto mated exposure control; mA and/or kV adjustment per patient size (includes targeted exams where dose is matched to clinical indication); or iterative reconstruction. DLP: 1095.78 mGy.cm COMPARISON: 09/09/2021 Lower thorax: Lung bases are clear. Visualized heart is normal. No hiatal hernia. Liver: Moderate hepatomegaly with diffuse hepatic steatosis. Gallbladder: Normal gallbladder. No pericholecystic fluid or cholelithiasis. No gallbladder wall thic kening. Pancreas: Normal size and attenuation. Normal pancreatic duct. No pancreatitis or mass. Spleen: Normal. Adrenal glands: Normal. No mass. Right kidney: Enlarged edematous RIGHT kidney with loss of the normal corticomedullary junction. Mild to moderate hydronephrosis. Proximal ureter is dilated. 2 x 5 mm calcification in the mid ureter at the L4 level. Distal ureter is normal caliber. There is an additional 2 mm nonobstructing calcificati on in the renal pelvis. Left kidney: Normal size kidney with no mass or hydronephrosis. Aorta: Normal abdominal aorta, no aneurysm or atherosclerosis. No free fluid, intraperitoneal air or significant lymphadenopathy. GI tract: Normal noncontrast imaging of the stomach, small bowel and colon. No obstruction or wall th ickening. Normal appendix. Abdominal wall: Small umbilical hernia contains fat only. Pelvis: Normally distended urinary bladder. No free fluid or adenopathy. Central prostate gland calci fications. No Osseous structures: Subchondral cystic changes RIGHT acetabulum. IMPRESSION: 1. Mild to moderate RIGHT hydroureteronephrosis secondary to a 2 x 5 mm calcification in the mid ure ter. Similar findings were noted on the prior CT of 09/09/2021. Stone burden in the mid RIGHT ureter m ay have slightly increased in size. 2. Additional nonobstructing RIGHT renal calcification. 3. Moderate hepatic steatosis and hepatomegaly.
[2023-03-03 09:50] VITALS: RESP 18; O2SAT 99
[2023-03-03] MEDS: ondansetron 2 mg/ML SDV 2 mL 4 MG IVP (09:50)
[2023-03-03] MEDS: morphine 4 mg/mL SDV 1 mL IVP (09:50)
[2023-03-03] MEDS: sodium chloride 0.9% 1,000 ML 999 ML IV (09:50)
[2023-03-03 09:59] LABS: Basophils # 0.1 10^3/uL (0.0-0.1); Basophils % 0.5 %; Eosinophils # 0.1 10^3/uL (0.0-0.8); Eosinophils % 0.6 %; Hematocrit 48.4 % (37-53); Lymphocytes # 2.4 10^3/uL (0.8-4.8); Lymphocytes % 15.7 %; Mean Corpuscular HGB Conc 35.7 g/dL (30-55); Mean Corpuscular Hemoglobin 32.3 pg (27-33); Mean Corpuscular Volume 90.5 fl (82-101); Mean Platelet Volume 10.8 fL (7.4-10.4); Monocytes # 0.8 10^3/uL (0.2-0.9); Monocytes % 5.3 %; Neutrophils % 77.6 %; Nucleated Red Blood Cells % 0 %; Platelet Count 211 10^3/cmm (157-399); Red Blood Count 5.35 10^6/uL (3.85-5.65); Red Cell Distribution Width 12.3 % (12.1-15.1); White Blood Count 14.95 10^3/uL (3.29-11.43)
[2023-03-03 10:16] LABS: Alanine Aminotransferase 33 U/L (0-41); Albumin Level 4.1 g/dL (3.5-5.2); Alkaline Phosphatase 66 U/L (40-130); Anion Gap 14.2 (5-19); Aspartate Amino Transferase 23 U/L (0-40); Blood Urea Nitrogen 10 mg/dL (6-20); Calcium 9.5 mg/dL (8.5-10.5); Carbon Dioxide 22 mmol/L (22-29); Chloride 107 mmol/L (98-107); Globulin 2.5 g/dL (1.3-4.6); Glomerular Filtration Rate 87.2 mL/min (90-130); Glucose 139 mg/dL (65-115); Lipase 37 U/L (13-60); Osmolality Calculated 289 mOsm/kg (285-295); Potassium 4.2 mmol/L (3.5-5.1); Sodium 139 mmol/L (136-145); Total Bilirubin 0.3 mg/dL (0.15-1.2); Total Protein 6.6 g/dL (6.6-8.7)
[2023-03-03 11:20] LABS: Urine Appearance Hazy (CLEAR); Urine Color Yellow (Yellow)
[2023-03-03 11:21] LABS: Add Urine Microscopic? YES; Bilirubin Urine Neg (Negative); Blood Urine 3+ (Negative); Glucose Urine UA Norm (Normal); Ketones Urine 1+ (Negative); Leukocyte Esterase Urine Negative (Negative); Nitrate Urine Negative (Negative); Protein Urine Trace (Negative); Urobilinogen Urine Norm (Negative); pH Urine 7 (5-7)
[2023-03-03] MEDS: nicotine 21 mg Patch 1 PATCH TRANSDERMA (11:29)
[2023-03-03 11:43] LABS: Amorphous Sediment Urine 1+ /hpf; Mucus Urine 1+ /hpf; RBC Urine 40-50 /hpf (0-2); Squamous Epithelial Cell Urine 0-4 /hpf (0-5); WBC Urine 0-4 /hpf (0-5)
[2023-03-03 11:44] LABS: Add Urine Culture? Yes; Hyaline Casts Urine 0-4 /lpf
--- NOTE | 2023-03-23 10:48 | DCPLANNER ---
Addendum entered by Mallory Dempsey 03/23/23 10:52: I called patient again on 03/23/23 at 1052 am. [facility] denied a referral to be sent anywhere due to having no insurance. I told patient that I can still fax his chart to [facility] or [facility] and he could speak with the clinics to see if they have a payment plan option. [facility] still denied a referral to be sent. Original Note: I attempted to call patient for a referral on 03/06/23 at 0836 am with no voicemail.
== END 2023-03-03 12:03 | disposition home or self-care (01) ==
PROVIDERS: Emergency Provider Family Medicine
DX: N20.0 Calculus of kidney (principal); Z87.442 Personal history of urinary calculi
CPT/HCPCS: 74176; 80053; 81001; 83690; 85025; 87086; 96361; 96374; 96375; 99285; J2270; J2405; J7030